=== PATIENT | female | born 1970 | race Caucasian/White ===

== ENCOUNTER 2024-09-12 10:01 | Outpatient (CLI) | payer BC, SELFPAY | END 2024-09-12 10:02 | disposition home or self-care (01) | LOC: NFLDREF 23:53 | PROVIDERS: Visit Provider Internal Medicine Nephrology | DX: N18.31 Chronic kidney disease, stage 3a (principal); E11.9 Type 2 diabetes mellitus without complications; I10 Essential (primary) hypertension | CPT/HCPCS: 87086 ==

== ENCOUNTER 2024-09-12 10:06 | Outpatient (CLI) | payer BC, SELFPAY | END 2024-09-12 10:07 | disposition home or self-care (01) | LOC: US 10:07 | PROVIDERS: Visit Provider Internal Medicine Nephrology | DX: N18.31 Chronic kidney disease, stage 3a (principal); I12.9 Hypertensive chronic kidney disease with stage 1 through stage 4 chronic kidney disease, or unspecified chronic kidney disease | CPT/HCPCS: 76775; 87086; 93975 ==

== ENCOUNTER 2024-09-28 16:22 | Outpatient (CLI) | payer BC, SELFPAY | END 2024-09-28 16:23 | disposition home or self-care (01) | LOC: NFLDREF 09-30 23:42 | PROVIDERS: Visit Provider Internal Medicine Nephrology | DX: N18.31 Chronic kidney disease, stage 3a (principal); E11.9 Type 2 diabetes mellitus without complications; I10 Essential (primary) hypertension | CPT/HCPCS: 80069 ==

== ENCOUNTER 2025-01-09 14:17 | Outpatient (CLI) | payer BC, SELFPAY | END 2025-01-09 14:18 | disposition home or self-care (01) | LOC: NFLDREF 01-13 10:29 | PROVIDERS: Visit Provider Internal Medicine Nephrology | DX: E11.22 Type 2 diabetes mellitus with diabetic chronic kidney disease (principal); I12.9 Hypertensive chronic kidney disease with stage 1 through stage 4 chronic kidney disease, or unspecified chronic kidney disease; N18.31 Chronic kidney disease, stage 3a; R82.89 Other abnormal findings on cytological and histological examination of urine | CPT/HCPCS: 80069; 82043; 82570; 84550; 86140; 87086 ==